=== PATIENT | female | born 1985 | race Caucasian/White ===

== ENCOUNTER 2018-01-28 16:54 | Emergency (ER) | payer MEDICAID ==
[~2018-01-28] VITALS: Ht 149.9 cm; Wt 55.3 kg
[~2018-01-28 16:54] MED LIST: AMOX200S35 PO; DOXY100C2 PO; RISP2TAB62 PO
[2018-01-28 17:23] VITALS: BP 115/78
[2018-01-28] MEDS ORDERED: IBUPROFEN 800 MG TAB PO ONE (19:45)
== END 2018-01-28 19:52 | disposition home or self-care (01) ==
LOC: ER 17:08
DX: S63.501A Unspecified sprain of right wrist, initial encounter (principal); F17.210 Nicotine dependence, cigarettes, uncomplicated; F14.10 Cocaine abuse, uncomplicated; F11.10 Opioid abuse, uncomplicated; F12.10 Cannabis abuse, uncomplicated; Z59.0 Homelessness; Z79.2 Long term (current) use of antibiotics; Z79.899 Other long term (current) drug therapy; W18.39XA Other fall on same level, initial encounter; Y93.89 Activity, other specified; Y99.8 Other external cause status; Y92.89 Other specified places as the place of occurrence of the external cause
CPT/HCPCS: 73090